=== PATIENT | female | born 1970 | race Caucasian/White ===

== ENCOUNTER → 2023-11-19 13:17 | Outpatient (CLI) | payer OTHER, SELFPAY ==
--- NOTE | 2023-11-19 13:19 | DI.RAD.S_ITS ---
PROCEDURE: FL WRIST INJECTION MR/CT LT INDICATIONS: Degenerative TFCC tear left COMPARISON: [facility] Outside Film, CT, CT UPPER EXTREMITY LEFT WITHOUT CONTRAST, 09/27/2023, 14:05. TECHNIQUE: After informed consent had been obtained, the wrist was examined fluoroscopically, and a site chosen for injection of the radiocarpal compartment from a dorsal approach. Skin was prepped and draped in a sterile fashion and 1% lidocaine infiltrated from the skin down to the articular surface. A hypodermic needle was then introduced into the articular space and a modest amount of contrast medium was instilled confirming intra-articular needle tip placement. This was followed by approximately 4 mL of a dilute gadolinium solution. Needle was removed and dressing was applied. The patient experienced no complications throughout the procedure and left the fluoroscopic suite in no apparent distress. FINDINGS: A single fluoroscopic spot image demonstrates intra-articular location to injected iodinated contrast. IMPRESSION: Successful fluoroscopic-guided administration of dilute Gadolinium solution for wrist MR arthrogram. Dictated by: Dulce Valderrama M.D. on 11/22/2023 at 10:07 Approved by: Dulce Valderrama M.D. on 11/22/2023 at 10:08
--- NOTE | 2023-11-19 13:19 | DI.MRI.S_ITS ---
PROCEDURE: MR WRIST LT W CON INDICATIONS: Degenerative TFCC tear left TECHNIQUE: After the administration of 3-4 mL of dilute intra-articular Gadolinium contrast into the radiocarpal compartment, coronal T1 spin echo with fat saturation and T2 fast spin echo with fat saturation, axial T1 spin echo and T2 fast spin echo with fat saturation, sagittal T1 spin echo with and without fat saturation through the wrist. COMPARISON: None. FINDINGS: Image quality: Excellent. Bones and cartilage: Alignment is anatomic. No marrow edema. No acute fracture. Suture anchor is seen at the 1st metacarpal base. Mild degenerative changes of the 1st carpal metacarpal joint. The ulnar groove appears hypoplastic. Carpal ligaments: The scapholunate and lunotriquetral ligaments appear intact, without gadolinium extravasation into the mid-carpal compartment. Triangular fibrocartilage complex: Central disc perforation. The fovea and the ulnar attachment are unremarkable. Tendons and soft tissues: The carpal tunnel structures appear normal, including the median nerve. The ulnar nerve appears normal within Guyon's canal. The extensor tendons are unremarkable. No ganglion cyst. IMPRESSION: 1. Central disc perforation of the triangular fibrocartilage. 2. Suture anchor at the base of the 1st metacarpal. Mild degenerative changes of the 1st carpometacarpal joint. Dictated by: Taty Jackson M.D. on 11/19/2023 at 15:53 Approved by: Taty Jackson M.D. on 11/19/2023 at 16:00
[2023-11-19] MEDS: LIDOCAINE 1% 20 ML INJ (14:33)
[2023-11-19] MEDS: SODIUM CHLORIDE 0.9 % 20 ML VIAL IV (14:34)
== END ==
PROVIDERS: Referring Provider Orthopaedic Surgery; Visit Provider Orthopaedic Surgery
DX: M24.132 Other articular cartilage disorders, left wrist (principal)
CPT/HCPCS: 25246; 73115; 73222; A9579; Q9967

== ENCOUNTER → 2024-03-26 14:49 | Outpatient (CLI) | payer OTHER, SELFPAY ==
--- NOTE | 2024-03-26 | DI.MG.S_ITS ---
BILATERAL DIGITAL SCREENING MAMMOGRAM 3D/2D WITH CAD: 03/26/2024 CLINICAL: Routine screening. Baseline exam. No prior exams were available for comparison. There are scattered areas of fibroglandular density in both breasts (category b / 25%-50% glandular tissue). Current study was also evaluated with a Computer Aided Detection (CAD) system. There is an oval equal density focal asymmetry in the right breast at 6 o'clock middle depth. No other significant masses, calcifications, or other findings are seen in either breast. IMPRESSION: INCOMPLETE: NEEDS ADDITIONAL IMAGING EVALUATION The oval equal density focal asymmetry in the right breast resembles a cyst or a lymph node and is indeterminate. Additional views with possible ultrasound are recommended. Based on the Tyrer Cuzick model (a risk assessment model) the patient's lifetime risk is 9.0% and her 10 year risk is 2.2%. According to the ACR, ACS, and NCCN guidelines, an annual breast MRI exam along with mammogram is recommended if the patient's lifetime risk is 20% or greater. This exam was interpreted at Station ID: [id number]. NOTE: For mammograms, a report in lay terms will be sent to the patient. Approximately 15% of breast malignancies will not be visualized mammographically. In the management of a palpable breast mass, a negative mammogram must not discourage biopsy of a clinically suspicious lesion. Electronically Signed By: Macho martinez/diamante:03/27/2024 07:32:40 letter sent: Additional Imaging Needed ACR BI-RADS Category 0: Incomplete 3340F
--- NOTE | 2024-03-26 14:50 | DI.US.S_ITS ---
PROCEDURE: US PELVIC COMPLETE INDICATIONS: endometrial thickening TECHNIQUE: Real-time scanning was performed of the pelvic organs, with image documentation. Additional endovaginal scanning was necessary due to incomplete visualization of the adnexal and endometrial structures by transabdominal scanning. COMPARISON: None. FINDINGS: Uterus: Uterus is retroverted and normal in size at 6.8 x 5.6 x 4.6 cm. The myometrium is homogeneous. The endometrium measures 4 mm combined thickness. Ovaries: The right ovary measures 3.2 x 1.9 x 1.7 cm, with a calculated ovarian volume of 5.4 cc. The left ovary measures 2.9 x 2.4 x 2.0 cm, with a calculated ovarian volume of 7.3 cc. The ovaries have a normal sonographic appearance. Less than 12 follicles can be seen in each ovary. No adnexal masses are seen. Other: No pathologic free abdominal or pelvic fluid. IMPRESSION: Unremarkable exam. We strive to produce accurate, complete, and clear reports of imaging services. To assist us in improving patient care, this report was composed using standard report templates and voice recognition software. Therefore, it may contain abnormal punctuation, insertions and/or omissions. Occasional wrong-word or sound-alike substitutions may occur. Though we review the report and make efforts to correct it, we do recommend that the report be read carefully in proper context to recognize any text inaccuracies. Dictated by: Ashleigh La M.D. on 03/26/2024 at 22:03 Approved by: Ashleigh La M.D. on 03/26/2024 at 22:04
== END ==
PROVIDERS: Referring Provider Obstetrics & Gynecology; Visit Provider Obstetrics & Gynecology
DX: Z12.31 Encounter for screening mammogram for malignant neoplasm of breast (principal); R92.323 Mammographic fibroglandular density, bilateral breasts; R93.89 Abnormal findings on diagnostic imaging of other specified body structures; Z80.49 Family history of malignant neoplasm of other genital organs
CPT/HCPCS: 76830; 76856; 77063; 77067

== ENCOUNTER → 2024-04-21 13:18 | Outpatient (CLI) | payer OTHER, SELFPAY ==
--- NOTE | 2024-04-21 13:20 | DI.US.S_ITS ---
LIMITED ULTRASOUND OF RIGHT BREAST AND AXILLA: 04/21/2024 CLINICAL: Patient returns today to evaluate a focal asymmetry in the right breast. Comparison is made to exams dated: 04/21/2024 mammogram and 03/26/2024 mammogram - [facility]. Color flow ultrasound of the right breast 6-7 o'clock, and axilla regions was performed. Galloway scale images of the real-time examination were reviewed. There is a 0.9 cm x 1.2 cm x 0.6 cm oval mass with a circumscribed margin in the right breast at 7 o'clock middle depth 8 cm from the nipple. This oval mass is hypoechoic with posterior acoustic shadowing. This correlates with mammography findings. No significant abnormalities were seen sonographically in the right axilla. IMPRESSION: SUSPICIOUS The 0.9 cm x 1.2 cm x 0.6 cm oval mass in the right breast is at a low suspicion for malignancy. An ultrasound guided biopsy is recommended. The findings and recommendations were discussed with the patient at the time of the exam. No significant abnormalities were seen sonographically in the right axilla. This exam was interpreted at Station ID: [id number]. Electronically Signed By: Jaime Cuellar M.D. ar/:04/21/2024 20:51:25 letter sent: Biopsy Required ACR BI-RADS Category 4A: Suspicious [id number]
--- NOTE | 2024-04-21 13:20 | DI.MG.S_ITS ---
UNILATERAL RIGHT DIGITAL DIAGNOSTIC MAMMOGRAM 3D/2D WITH ADDITIONAL VIEWS: 04/21/2024 CLINICAL: Additional evaluation requested from prior study. Comparison is made to exam dated: 03/26/2024 mammogram - [facility]. There are scattered areas of fibroglandular density (category b / 25%-50% glandular tissue). There is an oval equal density focal asymmetry with a circumscribed margin in the right breast at 7 o'clock middle depth. This is seen in additional views. No other significant masses or calcifications are seen in the breast. IMPRESSION: INCOMPLETE: NEED ADDITIONAL IMAGING EVALUATION The oval equal density focal asymmetry in the right breast is indeterminate. An ultrasound is recommended. Based on the Tyrer Cuzick model (a risk assessment model) the patient's lifetime risk is 9.0% and her 10 year risk is 2.2%. According to the ACR, ACS, and NCCN guidelines, an annual breast MRI exam along with mammogram is recommended if the patient's lifetime risk is 20% or greater. This exam was interpreted at Station ID: [id number]. NOTE: For mammograms, a report in lay terms will be sent to the patient. Approximately 15% of breast malignancies will not be visualized mammographically. In the management of a palpable breast mass, a negative mammogram must not discourage biopsy of a clinically suspicious lesion. Electronically Signed By: Jaime Cuellar M.D. ar/:04/21/2024 20:49:18 ACR BI-RADS Category 0: Incomplete: Need Additional Imaging Evaluation 3340F
== END ==
PROVIDERS: Referring Provider Obstetrics & Gynecology; Visit Provider Obstetrics & Gynecology
DX: R92.8 Other abnormal and inconclusive findings on diagnostic imaging of breast (principal); N63.13 Unspecified lump in the right breast, lower outer quadrant
CPT/HCPCS: 76642; 77065; G0279

== ENCOUNTER → 2024-05-11 13:42 | Outpatient (CLI) | payer OTHER, SELFPAY ==
--- NOTE | 2024-05-11 | PATH_ITS ---
[facility] Accession Number: [id number] No. of containers..01 Tissue . 01 Material submitted: . breast - RIGHT BREAST 7:00 8CMFN . 01 Diagnosis: RIGHT BREAST, 7 O'CLOCK, 8 CM FN, IMAGE-GUIDED BIOPSIES: Benign breast parenchyma with dense stromal fibrosis, fibroadenomatoid changes and focal pseudoangiomatous stromal hyperplasia-like changes, please see microscopic description. Negative for in situ or invasive carcinoma. MRV 05/14/2024 1710 Local . 01 Electronically signed: . Elena Duke MD, Pathologist NPI- [id number] . 01 Gross description: . Received in formalin with two identifiers and no site on jar, are multiple yellow-angeles soft tissue fragments admixed with hemorrhagic material aggregating to 1.9 x 1.9 x 0.2 cm. Inked blue, filtered, and submitted entirely in cassette A1. . The specimen was removed on 05/11/2024 at 1429 hours. Time in formalin not provided. Cold ischemic time cannot be calculated. Total fixation time is approximately 26 hours. ([id number]) /PHILLY 05/12/2024 0956 Local . 01 Microscopic: . Microscopic examination reveals benign breast tissue with dense stromal fibrosis, fibroadenomatoid changes, and focal delicate, endothelial lined capillary-like channels, resembling pseudoangiomatous stromal hyperplasia changes. To support the morphologic impression of benign changes, immunostains are performed with the following results: . P63 highlights the basal cell layer, myosin the myoepithelial cell layer and ERG immunostain highlights the endothelial cells. . These results support benign changes and argue against infiltrating lesion. . Multiple deeper levels have been examined. . In summary, the morphology along with immunohistochemical results support the diagnosis. . Please correlate with imaging studies. . * This test was developed and the performance characteristics were validated by [facility]. It has not been cleared or approved by the U.S. Food and Drug Administration. . 01 Pathologist provided ICD-10: N63.15 . 01 CPT . 816152, [id number], L59500 Performed at: [address] [address], [place], [place] [id number] MD Pool Lindquist MD Phone: [phone]
--- NOTE | 2024-05-11 | DI.MG.S_ITS ---
UNILATERAL RIGHT DIGITAL DIAGNOSTIC MAMMOGRAM 3D/2D: 05/11/2024 CLINICAL: Post right breast ultrasound biopsy clip placement imaging. Comparison is made to exams dated: 04/21/2024 mammogram, 03/26/2024 mammogram, 04/21/2024 ultrasound, and 05/11/2024 ultrasound biopsy - [facility]. There are scattered areas of fibroglandular density (category b / 25%-50% glandular tissue). There is a marker clip in the appropriate position in the right breast at 7 o'clock middle depth at the biopsy site. IMPRESSION: POST PROCEDURE MAMMOGRAM FOR MARKER PLACEMENT There was a successful marker clip placement in the right breast middle depth. This exam was interpreted at Station ID: [id number]. Electronically Signed By: Adalberto Bryan M.D. slc/:05/11/2024 15:28:23 ACR BI-RADS Category Post-Procedure Mammogram for Marker Placement
--- NOTE | 2024-05-11 | DI.US.S_ITS ---
ULTRASOUND GUIDED BIOPSY RIGHT BREAST WITH MARKING DEVICE INSERTED AND POST DIGITAL MAMMOGRAPHIC IMAGIN05/11/2024 CLINICAL: Right breast mass. PATIENT CONSENT: Risks (minor bleeding, infection, vasovagal reaction and repeat procedure), benefits and alternatives were explained to the patient and written informed consent was obtained. Correlation is made to exams dated: 05/11/2024 mammogram, 04/21/2024 ultrasound, 04/21/2024 mammogram, and 03/26/2024 mammogram - [facility]. An ultrasound guided biopsy using real-time ultrasound was performed for the 1.2 cm x 0.8 cm x 0.7 cm oval mass located in the right breast at 7 o'clock middle depth 8 cm from the nipple. This was described on the previous ultrasound report. The skin was prepped in the usual manner. Local anesthetic was administered to the access site. A skin tja was made in the breast. The abnormality was approached from the lateral aspect. A 14 gauge biopsy needle was placed adjacent to the abnormality under ultrasound guidance. Once the needle was documented to be in the correct location, five cores were obtained using Bard Elevation. The patient received additional local anesthetic during the procedure. A celero clip was inserted into the biopsy cavity. A skin adhesive and a sterile dressing were applied to the access site. Post procedure digital mammographic imaging demonstrates the location device at the targeted area. The specimens were sent to the laboratory for pathological analysis. IMPRESSION: ULTRASOUND GUIDED BIOPSY BENIGN Ultrasound guided biopsy of the 1.2 cm x 0.8 cm x 0.7 cm mass in the right breast at 7 o'clock middle depth 8 cm from the nipple was successful with no apparent post procedure complications. Pathology indicates benign fibroadenomatoid changes, focal pseudoangiomatous stromal hyperplasia (PSH), and dense stromal fibrosis. Pathology results are concordant with imaging findings. A follow-up right mammogram and an ultrasound in 6 months is recommended to demonstrate stability. This exam was interpreted at Station ID: [id number]. Adalberto Castillo M.D. [facility],aty/:05/18/2024 16:41:20
== END ==
PROVIDERS: Referring Provider Obstetrics & Gynecology; Visit Provider Obstetrics & Gynecology
DX: N60.31 Fibrosclerosis of right breast (principal)
CPT/HCPCS: 19083; 77065

== ENCOUNTER 2024-06-05 13:50 | Day surgery (SDC) | payer OTHER, SELFPAY ==
[2024-06-05 14:27] VITALS: BP 143/91; PULSE 91; RESP 16; TEMP 36.2; O2SAT 98
--- NOTE | 2024-06-05 14:34 | PM.HP.1 ---
History of Present Illness History of Present Illness Date Patient Seen: 06/05/24 Time Patient Seen: 14:34 Chief complaint: Colonoscopy Narrative: 53-year-old woman here for 1st time screening colonoscopy. No abdominal concerns today. No family history of colon cancer. [facility] Social History Smoking Status: Never smoker alcohol intake: current Meds Home Medications and Allergies Home Medications Medication Instructions Recorded Confirmed Type drospirenone 3 mg-ethinyl 1 tab PO DAILY #84 tabs 02/27/24 06/05/24 Rx estradiol 0.03 mg tablet (Meenu (28)) gabapentin 300 mg capsule mg PO 02/27/24 02/27/24 History glipizide 5 mg tablet, extended 5 mg PO BID 02/27/24 06/05/24 History release 24 hr fluconazole 150 mg tablet 150 mg PO Q3D 2 doses #2 tabs 03/13/24 06/05/24 Rx Allergies Allergy/AdvReac Type Severity Reaction Status Date / Time percocet Allergy Uncoded 06/05/24 14:20 Exam Vital Signs (past 8 hours): - 06/05/24 14:27 Temperature 97.1 F L Pulse Rate 91 H Respiratory Rate 16 Blood Pressure 143/91 H Pulse Oximetry 98 Oxygen Delivery Method Room Air Oxygen Delivery Method Room Air Narrative Exam Narrative: General adult woman alert oriented no acute distress Chest nonlabored respiration Extremities warm well perfused Assessment & Plan Assessment & Plan narrative: The patient requires colorectal screening and colonoscopy is recommended. Technical details were discussed. Risks, benefits, alternatives explained. Risks including but not limited to myocardial infarction, aspiration, bleeding, pain, missed lesion, incomplete examination, need for further radiographic studies, intestinal injury, and need for major abdominal surgery were discussed. All questions were answered to their satisfaction, and they are in agreement with this plan. Time-Based Coding :: [TOTAL MINUTES] spent with patient and on the chart (including review of chart, obtaining history, exam, reviewing outside data, placing orders, documenting exam and treatment plan, and counseling patient) on [DATE].
--- NOTE | 2024-06-05 15:09 | P.OP.COLON_ITS ---
Operative Date/Time/Diagnoses Date of procedure: 06/05/24 Time of procedure: 15:09 Pre-op diagnosis: Colorectal screening Procedure & Clinicians Study performed: Screening colonoscopy Same procedure as scheduled: Yes Indications: Screening Surgeon: Daniel Juarez Procedure Notes Procedure in detail: The history and physical was performed/updated and the patient is ASA class is 2. The procedure was discussed in detail with the patient. Potential risks complications including infection, bleeding, missed diagnosis, perforation, need for surgery, and were explained. Their questions were answered and informed consent was obtained. Patient was brought to the procedure room and placed standard monitoring equipment. The patient's vital signs were monitored continuously throughout the entire procedure. Prior to starting time-out was performed. The patient was placed in the left lateral recumbent position. Procedural sedation was administered by anesthesia. Examination began with a thorough inspection of the perianal area there was no evidence of fissures, fistulae, external hemorrhoids or cutaneous malignancy. The colonoscopy scope was then placed into the anal canal and was advanced to the cecum, which was identified by the ileocecal valve, the appendiceal orifice and the confluence of the taenia. The scope was then slowly withdrawn examining colon thoroughly in all directions, irrigating it of any residual stool. The scope was retroflexed within the rectum The patient tolerated the procedure well. They will be discharged once criteria are met. The prep was of good/excellent quality. The withdrawl time was 7 minutes. FINDINGS * Unremarkable colonoscopy. Normal healthy colonic mucosa without mass or polyps. Specimen(s): none sent Impression: Normal colonoscopy Post-procedure Recommendations: Colonoscopy in 10 years Disposition: same day surgery
[2024-06-05 15:28] VITALS: BP 129/73; PULSE 81; RESP 12; TEMP 36.3; O2SAT 93
[2024-06-05 15:34] VITALS: BP 127/83; PULSE 89; RESP 18; O2SAT 93
[2024-06-05 15:37] VITALS: BP 130/83; PULSE 82; RESP 12; TEMP 36.3; O2SAT 95
[2024-06-05 15:40] VITALS: BP 111/78; PULSE 79; RESP 16; O2SAT 99
== END 2024-06-05 15:53 | disposition home or self-care (01) ==
PROVIDERS: Referring Provider Surgery; Visit Provider Surgery
PROC: 0DJD8ZZ Inspection of Lower Intestinal Tract, Via Natural or Artificial Opening Endoscopic (ICD-10-PCS; CPT 45378; principal; 2024-06-05 15:00)
DX: Z12.11 Encounter for screening for malignant neoplasm of colon (principal)
CPT/HCPCS: 45378; J2704